=== PATIENT | female | born 1935 | race Caucasian/White ===

== ENCOUNTER → 2019-04-02 | Outpatient (CLI) | payer MEDICARE, MEDICAID | END | disposition home or self-care (01) | LOC: US 07:35 | PROVIDERS: ATTEND Internal Medicine Nephrology | DX: M79.661 Pain in right lower leg (principal); M79.662 Pain in left lower leg; R60.0 Localized edema | CPT/HCPCS: 93970 ==

== ENCOUNTER 2019-04-12 19:38 | Emergency (ER) | payer MEDICARE, MEDICAID ==
[~2019-04-12] VITALS: Ht 144.8 cm; Wt 49.0 kg
[2019-04-12] MEDS: IBUPROFEN 400MG TABLET PO ONE (22:09)
[2019-04-12] MEDS ORDERED: LIDOCAINE HCL/PF 1% 10 MG/ML 5ML VIAL IJ ONE (22:30)
[2019-04-13 02:03] VITALS: BP 128/66
== END 2019-04-13 02:26 | disposition home or self-care (01) ==
LOC: ER 19:38
DX: S52.502A Unspecified fracture of the lower end of left radius, initial encounter for closed fracture (principal); E11.9 Type 2 diabetes mellitus without complications; I10 Essential (primary) hypertension; E78.00 Pure hypercholesterolemia, unspecified; W19.XXXA Unspecified fall, initial encounter; Y93.89 Activity, other specified; Y92.89 Other specified places as the place of occurrence of the external cause; Y99.8 Other external cause status
CPT/HCPCS: 29125; 73090; 73110; 99283; J3490

== ENCOUNTER 2019-04-17 07:01 | Emergency (ER) | payer MEDICARE, MEDICAID ==
[~2019-04-17] VITALS: Ht 149.9 cm; Wt 61.0 kg
[2019-04-17] MEDS ORDERED: HYDROCODONE/ACETAMINOPHEN 5/325MG TABLET PO ONE (07:45)
[2019-04-17 09:48] VITALS: BP 134/62
== END 2019-04-17 09:54 | disposition home or self-care (01) ==
LOC: ER 08:05
DX: S52.502D Unspecified fracture of the lower end of left radius, subsequent encounter for closed fracture with routine healing (principal); R58 Hemorrhage, not elsewhere classified; E11.9 Type 2 diabetes mellitus without complications; I10 Essential (primary) hypertension; E78.00 Pure hypercholesterolemia, unspecified; W01.0XXD Fall on same level from slipping, tripping and stumbling without subsequent striking against object, subsequent encounter
CPT/HCPCS: 29125; 73080; 99283; A4565

== ENCOUNTER 2021-11-05 14:25 | Emergency (ER) | payer MEDICARE, MEDICAID ==
[~2021-11-05] VITALS: Ht 152.4 cm; Wt 55.0 kg
[2021-11-05 14:37] VITALS: BP 143/48
[2021-11-05] MEDS ORDERED: ACETAMINOPHEN 325MG TABLET PO STA (14:46)
[2021-11-05 15:24] LABS: HEMATOCRIT. 42.9 % (36.0-48.0); HEMOGLOBIN. 14.2 g/dL (12.0-16.0); MEAN CORPUSCULAR HEMOGLOBIN 29.6 pg (28.0-32.0); MEAN CORPUSCULAR VOLUME 89.7 fL (81.0-99.0); MEAN PLATELET VOLUME 7.3 fl (7.4-10.4); PLATELET 315 x1000/uL (130-400); RED BLOOD CELL COUNT 4.78 mill/uL (4.2-5.4); RED CELL DISTRIBUTION WIDTH 17.7 % (11.6-14.6)
[2021-11-05 15:33] LABS: CLARITY URINE CLOUDY (CLEAR); COLOR URINE YELLOW (YELLOW); KETONES URINE NEGATIVE (NEGATIVE); LEUKOCYTE ESTERASE URINE 2+ (NEGATIVE); NITRITE URINE NEGATIVE (NEGATIVE); OCCULT BLOOD URINE NEGATIVE (NEGATIVE); PH URINE 6.5 (4.5-8.0); PROTEIN URINE NEGATIVE (NEGATIVE); SPECIFIC GRAVITY URINE 1.009 (1.005-1.030); UROBILINOGEN URINE 0.2 E.U./dL (0.2-1.0)
[2021-11-05 15:42] LABS: CHLORIDE 105 mEq/L (98-107)
[2021-11-05] MEDS ORDERED: ONDANSETRON 4MG ODT PO ONE (15:45)
[2021-11-05] MEDS ORDERED: DIATR MEGLU/DIATRIZOATE SOLN 120ML ONE (15:49)
[2021-11-05 15:57] LABS: PLATELET ESTIMATE NORMAL
[2021-11-05] MEDS ORDERED: CEPH500C2 MT (16:54)
[2021-11-05] MEDS ORDERED: IBUP-2029 MT (16:56)
[2021-11-07] MEDS ORDERED: PROP5POW MC (03:19)
[2021-11-07] MEDS ORDERED: HYDR25TA PO (03:19)
[2021-11-07] MEDS ORDERED: LEVO50TA8 PO (03:19)
[2021-11-07] MEDS ORDERED: AMLO10TA80 PO (03:19)
[2021-11-07] MEDS ORDERED: PROP10TA10 MT (03:19)
[2021-11-07] MEDS ORDERED: ATOR40TA70 PO (03:25)
[2021-11-07] MEDS ORDERED: METF-873 PO (03:25)
[2021-11-09] MEDS ORDERED: AMLO5TAB88 PO (09:01)
[2021-11-09] MEDS ORDERED: PANT40TA51 MT (09:01)
== END 2021-11-05 17:32 | disposition home or self-care (01) ==
LOC: ER 14:46
DX: N30.00 Acute cystitis without hematuria (principal); E11.9 Type 2 diabetes mellitus without complications; I10 Essential (primary) hypertension; E78.00 Pure hypercholesterolemia, unspecified
CPT/HCPCS: 36415; 74176; 80053; 81003; 83690; 85025; 99284; Q0162; Q9963